=== PATIENT | female | born 1990 | race Hispanic/Latino ===

== ENCOUNTER 2025-06-26 16:09 | Emergency (ER) | payer SELFPAY ==
[~2025-06-26] VITALS: Ht 154.9 cm; Wt 65.8 kg
[2025-06-26 16:13] VITALS: BP 133/76; PULSE 65; RESP 18; TEMP 97.8
[2025-06-26 16:46] LABS: IMMATURE GRANULOCYTE ABSOLUTE 0.03 K/uL (0-1); NUCLEATED RED BLOOD CELLS 0.0 % (0.0-0.19); PLATELET COUNT (AUTO) 313 K/uL (130-400); RED BLOOD CELL COUNT(AUTO) 4.43 MIL/uL (4.00-5.50); RED CELL DISTRIBUTION WIDTH 16.1 % (11.0-15.5); WHITE BLOOD COUNT (AUTO) 7.2 K/uL (4.8-10.8)
[2025-06-26 16:53] LABS: CREATININE 0.6 mg/dL (0.5-1.0); GLOMERULAR FILTR. RATE CALC 121.0 mL/min (>90); GLUCOSE,RANDOM 104.0 mg/dL (70-105); SODIUM SERUM 137.0 mmol/L (136-145); UREA NITROGEN, BLOOD 7.0 mg/dL (7-18)
[2025-06-26 17:08] LABS: HCG,QUANTITATIVE 238.0 mIU/mL (0-5)
[2025-06-26 17:28] LABS: ADD UA MICROSCOPIC YES; APPEARANCE,URINE TURBID (CLEAR); GLUCOSE, URINE (UA) NEGATIVE (NEGATIVE); LEUKOCYTE ESTERASE ,URINE NEGATIVE Leu/uL (NEGATIVE); NITRATE,URINE NEGATIVE (NEGATIVE); OCCULT BLOOD,URINE SMALL (NEGATIVE)
--- NOTE | 2025-06-26 17:34 | HMCIMG ---
STUDY: ULTRASOUND OBSTETRIC (<14 WEEKS) CLINICAL INFORMATION: Vaginal bleeding in early . Last menstrual period 05/18/2025, corresponding to a gestational age of 5 weeks 4 days with MELECIO (LMP) 02/22/2026. TECHNIQUE: Pelvic ultrasound was performed with grayscale imaging in longitudinal and transverse planes to evaluate the uterus, endometrial cavity, adnexa, and cul-de-sac. COMPARISON: None provided. FINDINGS: UTERUS: Uterus measures approximately 9.9 x 5.0 x 5.9 cm and is normal in size and myometrial echotexture. GESTATIONAL SAC: A single intrauterine sac-like structure is seen within the endometrial cavity. Mean sac diameter is approximately 0.48 cm, corresponding to an average ultrasound age (AUA) of 5 weeks 2 days with MELECIO (AUA) 02/24/2026. Sac contour appears normal, and there is no internal yolk sac or pole identified. YOLK SAC: Not visualized. EMBRYO: pole is not visualized. HEART ACTIVITY: Not visualized, in keeping with non-visualization of a discrete embryonic pole at this very early gestational age. SUBCHORIONIC REGION: No subchorionic hematoma or perigestational fluid collection is identified. RIGHT OVARY: Measures approximately 2.2 x 1.4 x 1.9 cm with normal morphology and echotexture. No adnexal mass is seen. LEFT OVARY: Measures approximately 2.1 x 1.5 x 1.5 cm with normal morphology and echotexture. No adnexal mass is seen. FREE FLUID: No free fluid is seen in the cul-de-sac. IMPRESSION: * Small intrauterine gestational sac-like structure with mean sac diameter corresponding to approximately 5 weeks 2 days gestation (AUA), close to the gestational age by LMP (5 weeks 4 days; MELECIO 02/22/2026 vs MELECIO 02/24/2026 by AUA). No yolk sac, embryo, or cardiac activity is yet visualized, which can be within normal limits at this early stage; correlation with serial serum beta-hCG levels and short-interval follow-up ultrasound in approximately 7???10 days is recommended to assess for interval development and confirm viability. * Uterus and adnexa are otherwise unremarkable with normal-appearing bilateral ovaries, no subchorionic hematoma, and no free pelvic fluid; no adnexal mass is identified to suggest ectopic on this examination, although ongoing clinical and biochemical correlation remains important in the setting of early with vaginal bleeding. /[place]
[2025-06-26 17:39] LABS: SQUAMOUS EPITHELIAL CELL,UR Few /HPF (0-2)
--- NOTE | 2025-06-26 18:02 | ERN ---
General Chief Complaint: Vaginal Bleeding Stated Complaint: VAG BLEED Time Seen by MD: 16:17 Source: patient History of Present Illness Initial Comments PATIENT IS A 34-YEAR-OLD FEMALE AT SIX WEEKS BY DATE COMING IN DUE TO VAGINAL BLEED. PATIENT STATES SHE HAS BEEN HAVING VAGINAL BLEED FOR TWO DAYS. NO FEVER NO CHILLS. Past Medical History Past Medical History: No Pertinent History Past Surgical History: None ROS Dictation CONSTITUTIONAL: NO CHILLS, NO FEVER, NO WEAKNESS, NO DIAPHORESIS, NO MALAISE. HEAD/FACE: NO SIGNS OF TRAUMA. EENT: NO EYE PAIN, NO BLURRED VISION, NO TEARING, NO DOUBLE VISION, NO EAR PAIN, NO EAR DISCHARGE, NO NOSE PAIN, NO NASAL CONGESTION, NO THROAT PAIN, NO THROAT SWELLING, NO MOUTH PAIN. RESPIRATORY: NO COUGH, NO ORTHOPNEA, NO SOB, NO STRIDOR, NO WHEEZING. CARDIOVASCULAR: NO CHEST PAIN, NO EDEMA, NO PALPITATIONS, NO SYNCOPE. GASTROINTESTINAL/ABDOMINAL: NO ABDOMINAL PAIN, NO CONSTIPATION, NO DIARRHEA, NO NAUSEA, NO VOMITING. GENITOURINARY: NO ABNORMAL DISCHARGE, NO DYSURIA, NO FREQUENT URINATION, NO H EMATURIA. NO COMPLAINTS OF PAIN IN THE GENITALS. MUSCULOSKELETAL: NO BACK PAIN, NO GOUT, NO JOINT PAIN, NO JOINT SWELLING, NO MUSCLE PAIN, NO MUSCLE STIFFNESS, NO NECK PAIN. INTEGUMENTARY: NO CHANGE IN COLOR, NO CHANGE IN HAIR/NAILS, NO DRYNESS, NO LES ION, NO LUMPS, NO RASH. NEUROLOGICAL/PSYCH: NO ANXIETY, NOT DEPRESSED, NO EMOTIONAL PROBLEM, NO HEADACHE, NO NUMBNESS, NO PRE-EXISTING DEFICIT, NO HISTORY OF SEIZURES, NO TREMORS, NO WEAKNESS. HEMATOLOGIC/LYMPHATIC: NOT ANEMIC, NO HISTORY OF BLOOD CLOTS, NO APPARENT BLEEDING, NO BRUISING, GLANDS NOT SWOLLEN. ALL SYSTEMS NEGATIVE, EXCEPT NOTED. Physical Exam Physical Exam Dictation VITAL SIGNS: REVIEWED. GENERAL APPEARANCE: ALERT, ORIENTED X3, NO ACUTE DISTRESS, OBESE. HEAD AND FACE: NON-TRAUMATIC. EYES: PERRL, PINK CONJUNCTIVAS, EYELID NO TRAUMA, ANTERIOR CHAMBER CLEAR. EARS: PINNAS INTACT AND NO SIGNS OF TRAUMA OR ERYTHEMA. EAR CANALS CLEAR AND NO DISCHARGE. TMS NO ERYTHEMA. NOSE: NO DISCHARGE, NO BLEEDING. OROPHARYNX: MOUTH NORMAL, TEETH NO CARIES, TONGUE PINK. PHARYNX CLEAR, NO ERYTHEMA. TONSILS NO EXUDATES, NO ABSCESSES NOTED. MUCOUS MEMBRANE MOIST. NECK: SUPPLE, NON-TENDER, NO THYROMEGALY, NO MASSES, NO JVD, NO BRUITS. BREAST: DEFERRED. CHEST: NO TENDERNESS, NO CREPITUS, NO PARADOXICAL MOVEMENT, NO RETRACTIONS. LUNGS: CLEAR, WELL-VENTILATED, SYMMETRIC, NO RALES, NO WHEEZING, NO RHONCHI, NO STRIDOR, GOOD BREATH SOUNDS BILATERALLY. HEART: REGULAR RATE, REGULAR RHYTHM, NO MURMUR, NO GALLOPS. VASCULAR: NO PERIPHERAL EDEMA. ABDOMEN: SOFT, POSITIVE BOWEL SOUNDS, NONDISTENDED, NO GUARDING, NONTENDER, NO REBOUND, NO MASSES NO HEPATOMEGALY, NO SPLENOMEGALY, NO JACOBS'S SIGN, NO HERNIAS. RECTAL: DEFERRED. GENITAL: DEFERRED. NEUROLOGICAL: NORMAL SPEECH, GROSS MOTOR FUNCTION INTACT, GROSS SENSORY FUNCTION INTACT. MUSCULOSKELETAL: NECK NONTENDER, FULL RANGE OF MOTION, BACK NONTENDER, FULL RANGE OF MOTION. EXTREMITIES: NONTENDER, FULL RANGE OF MOTION. SKIN: COLOR PINK, DRY, NO TURGOR, NO RASH, NO LACERATIONS, NO ABRASIONS, NO CONTUSIONS. LYMPHATICS: DEFERRED. Results Laboratory and Microbiology Lab and Micro Result Laboratory Tests Test 06/26/25 16:20 06/26/25 16:39 Urine Color YELLOW (YELLOW) Urine Appearance TURBID (CLEAR) Urine pH 6.0 (5.0-8.0) Urine Specific [place] 1.032 (1.001-1.031) Urine Protein NEGATIVE mg/dL (NEGATIVE) Urine Glucose (UA) NEGATIVE mg/dL (NEGATIVE) Urine Ketones NEGATIVE mg/dL (NEGATIVE) Urine Occult Blood SMALL (NEGATIVE) H Urine Nitrate NEGATIVE (NEGATIVE) Urine Bilirubin NEGATIVE mg/dL (NEGATIVE) Urine Urobilinogen 0.2 mg/dL (0.2-1.0) Urine Leukocyte Esterase NEGATIVE [place]/uL Urine RBC 0-1 /HPF (0-1) Urine WBC 0-1 /HPF (0-1) Urine Squamous Epithelial Cells Few /HPF (0-2) Urine Bacteria Few /HPF (None Seen) White Blood Count 7.2 K/uL (4.8-10.8) Red Blood Count 4.43 MIL/uL (4.00-5.50) Hemoglobin 11.1 g/dL (12.0-16.0) L Hematocrit 34.9 % (36-48) L Mean Corpuscular Volume 78.8 fL (79-99) L Mean Corpuscular Hemoglobin 25.1 pg (27.0-33.0) L Mean Corpuscular Hemoglobin Concent 31.8 g/dL (32.0-36.0) L Red Cell Distribution Width 16.1 % (11.0-15.5) H Platelet Count 313 K/uL (130-400) Mean Platelet Volume 9.9 fL (7.5-10.5) Immature Granulocyte % (Auto) 0.4 % (0-1) Neutrophils (%) (Auto) 58.9 % (40.0-77.0) Lymphocytes (%) (Auto) 24.9 % (21.0-51.0) Monocytes (%) (Auto) 9.4 % (3.0-13.0) Eosinophils (%) (Auto) 5.4 % (0.0-8.0) Basophils (%) (Auto) 1.0 % (0.0-5.0) Neutrophils # (Auto) 4.3 K/uL (1.8-7.7) Lymphocytes # (Auto) 1.8 K/uL (1.0-4.8) Monocytes # (Auto) 0.7 K/uL (0.1-1.0) Eosinophils # (Auto) 0.39 K/uL (0.00-0.70) Basophils # (Auto) 0.07 K/uL (0.00-0.20) Absolute Immature Granulocyte (auto 0.03 K/uL (0-1) Nucleated Red Blood Cells 0.0 % (0.0-0.19) Sodium Level 137 mmol/L (136-145) Potassium Level 3.3 mmol/L (3.5-5.1) L Chloride Level 104 mmol/L (101-111) Carbon Dioxide Level 28 mmol/L (21-32) Blood Urea Nitrogen 7 mg/dL (7-18) Creatinine 0.6 mg/dL (0.5-1.0) Glomerular Filtration Rate Calc 121 mL/min (>90) Random Glucose 104 mg/dL (70-105) Total Calcium 8.6 mg/dL (8.5-10.1) Human Chorionic Gonadotropin, Quant 238 mIU/mL (0-5) H Serum Test, Qualitative POSITIVE (NEGATIVE) H Labs Reviewed?: Yes EKG/XRAY/US/CT/MRI Ultrasound Comment [facility] [address] [place] [address] IMAGING REPORT Signed PATIENT: ADDY CANDELARIO MR#: [id number] : 1990 SEX: F AGE: 34 LOCATION: [facility] ORDER 1622 STATUS: REG ER REPORT#: [id number] SERVICE 1621 REASON: VAG BLEED ORDERING PHYSICIAN: CARLA MCDONALD MD PROCEDURE: OB <14 - US OB <14 WEEKS STUDY: ULTRASOUND OBSTETRIC (<14 WEEKS) CLINICAL INFORMATION: Vaginal bleeding in early . Last menstrual period 05/18/2025, corresponding to a gestational age of 5 weeks 4 days with MELECIO (LMP) 02/22/2026. TECHNIQUE: Pelvic ultrasound was performed with grayscale imaging in longitudinal and transverse planes to evaluate the uterus, endometrial cavity, adnexa, and cul-de-sac. COMPARISON: None provided. FINDINGS: UTERUS: Uterus measures approximately 9.9 x 5.0 x 5.9 cm and is normal in size and myometrial echotexture. GESTATIONAL SAC: A single intrauterine sac-like structure is seen within the endometrial cavity. Mean sac diameter is approximately 0.48 cm, corresponding to an average ultrasound age (AUA) of 5 weeks 2 days with MELECIO (AUA) 02/24/2026. Sac contour appears normal, and there is no internal yolk sac or pole identified. YOLK SAC: Not visualized. EMBRYO: pole is not visualized. HEART ACTIVITY: Not visualized, in keeping with non-visualization of a discrete embryonic pole at this very early gestational age. SUBCHORIONIC REGION: No subchorionic hematoma or perigestational fluid collection is identified. RIGHT OVARY: Measures approximately 2.2 x 1.4 x 1.9 cm with normal morphology and echotexture. No adnexal mass is seen. LEFT OVARY: Measures approximately 2.1 x 1.5 x 1.5 cm with normal morphology and echotexture. No adnexal mass is seen. FREE FLUID: No free fluid is seen in the cul-de-sac. IMPRESSION: * Small intrauterine gestational sac-like structure with mean sac diameter corresponding to approximately 5 weeks 2 days gestation (AUA), close to the gestational age by LMP (5 weeks 4 days; MELECIO 02/22/2026 vs MELECIO 02/24/2026 by AUA). No yolk sac, embryo, or cardiac activity is yet visualized, which can be within normal limits at this early stage; correlation with serial serum beta-hCG levels and short-interval follow-up ultrasound in approximately 7???10 days is recommended to assess for interval development and confirm viability. * Uterus and adnexa are otherwise unremarkable with normal-appearing bilateral ovaries, no subchorionic hematoma, and no free pelvic fluid; no adnexal mass is identified to suggest ectopic on this examination, although ongoing clinical and biochemical correlation remains important in the setting of early with vaginal bleeding. /[place] DICTATED BY: ANA MAYNARD MD DATE: 06/26/251832 ELECTRONICALLY SIGNED BY: ANA MAYNARD MD DATE: 06/26/251832 [facility] MDM: DIFFERENTIAL DIAGNOSIS: VAGINAL BLEED, THREATENED MISCARRIAGE, RATIONALE: TESTS CONSIDERED AND ORDERED SECONDARY TO SHARED DECISION MAKING INCLUDE: PREVIOUS OUTSIDE RECORDS REVIEWED: OLD ER VISITS. RISK OF COMPLICATION AND/OR MORBIDITY OR MORTALITY OF PATIENT MANAGEMENT: NONE MEDICATIONS-PER MEDICATION RECONCILIATION NEED FOR HOSPITALIZATION: PATIENT DOES NOT MEET CRITERIA FOR HOSPITALIZATION. NEED FOR EMERGENCY MAJOR/MINOR SURGERY: NO PATIENT IS A 34-YEAR-OLD FEMALE COMING IN WITH A VAGINAL BLEED. PATIENT STATES HE IS A AT SIX WEEKS BY DATE. LABORATORY WORKUP AND ULTRASOUND NEGATIVE FOR ANY ACUTE FINDINGS. DID ADVISED HER APPROPRIATE FOLLOW UP WITH PCP FOR ONGOING EVALUATION. ED Course Orders Procedure Category Date Status Time Cbc With Differential LAB 06/26/25 Complete 16:21 Hcg,Quantitative LAB 06/26/25 Complete 16:21 Urinalysis Profile LAB 06/26/25 Complete 16:21 Basic Metabolic Panel LAB 06/26/25 Complete 16:21 Testing, LAB 06/26/25 Complete Serum Hcg 16:21 Us Ob <14 Weeks US 06/26/25 Resulted 16:21 Vital Signs Date Time Temp Pulse Resp B/P (MAP) Pulse Ox O2 Delivery O2 Flow Rate FiO2 06/26/25 16:13 97.9 65 18 133/76 99 DX & DISP Disposition: Discharge Departure Impression: Primary Impression: Miscarriage, threatened, early Condition: Stable Additional Instructions: FOLLOW-UP WITH PRIMARY CARE PROVIDER IN 1 TO 2 DAYS. TAKE MEDICATIONS DIRECTED HERE IN THE EMERGENCY ROOM. OKAY TO CONTINUE HOME MEDICATIONS UNLESS OTHERWISE DISCUSSED DURING YOUR VISIT IN THE EMERGENCY ROOM TODAY. RETURN TO YOUR NEAREST EMERGENCY ROOM IF SYMPTOMS WORSEN OR IF THERE IS NO IMPROVEMENT. CALL 911 IF YOU NEED IMMEDIATE ASSISTANCE. TAKE TYLENOL [id number] NEEDED AND IF NO CONTRAINDICATIONS ARE PRESENT. INCREASE ORAL HYDRATION. A WOUND CULTURE OR URINE CULTURE WAS ORDERED HERE IN THE EMERGENCY ROOM DEPARTMENT PLEASE FOLLOW-UP WITH PRIMARY CARE PROVIDER AND ADVISE THEM TO GET REPORTS FROM OUR FACILITY. IF YOU HAD ANY DIANDRA WRAP/SPLINTS THAT WERE APPLIED HERE, PLEASE DO NOT REMOVE THEM UNTIL YOU SEE YOUR PRIMARY CARE OR SPECIALTY. REFERRALS: Referrals: ARMANDO BOWERS MD (PCP) Time of Disposition: 18:03 CARLA MCDONALD MD Jun 26, 2025 18:01
== END 2025-06-26 18:11 | disposition home or self-care (01) ==
LOC: EDH 16:09
DX: O20.0 Threatened abortion (principal); Z3A.01 Less than 8 weeks gestation of pregnancy
CPT/HCPCS: 36415; 76801; 80048; 81001; 84702; 84703; 85025; 99284